=== PATIENT | female | born 1965 | race Caucasian/White ===

== ENCOUNTER 2017-07-22 05:55 | Day surgery (SDC) | payer OTHER ==
[~2017-07-22 05:55] MED LIST: CATAFLAN PO; PERCOCET 10-321 EACH PO; TRAMADOL HCL50 MG PO
[2017-07-22] MEDS ORDERED: NAPROXEN SODIU550 M1 PO (08:25)
== END 2017-07-22 10:00 | disposition home or self-care (01) ==
LOC: CIR.AMB 05:55
DX: N84.0 Polyp of corpus uteri (principal); N72 Inflammatory disease of cervix uteri